=== PATIENT | female | born 1975 | race Caucasian/White ===

== ENCOUNTER 2018-11-09 11:24 | Day surgery (SDC) | payer OTHER ==
[~2018-11-09 11:24] MED LIST: CEFAZOLIN 2 GM/50 ML (PMX) 50 ML IVPB; SOD CHLORIDE 0.9% 1,000 ML IV
[2018-11-09] MEDS ORDERED: BUPIVACAINE 0.5% (SDV) 30 ML INJ (12:13)
[2018-11-09] MEDS ORDERED: PROPOFOL 100 ML (13:00)
[2018-11-09] MEDS ORDERED: LIDOCAINE 2% (SDV) 5 ML INJ (13:01)
[2018-11-09] MEDS ORDERED: CEFAZOLIN 1 GM INJ (13:08)
[2018-11-09] MEDS: LIDOCAINE 1% (MPF) 30 ML INJ (13:20)
[2018-11-09] MEDS ORDERED: DEXAMETHASONE 4 MG/ML 5 ML INJ (13:21)
[2018-11-09] MEDS ORDERED: ONDANSETRON 4 MG INJ (13:22)
[2018-11-09] MEDS ORDERED: DIPHENHYDRAMINE 50 MG INJ IV (14:00)
[2018-11-09] MEDS ORDERED: OXYCODONE/ACETAMINOPHEN (5/325) TAB PO ×2 (14:00)
[2018-11-09] MEDS ORDERED: METOCLOPRAMIDE 10 MG INJ IV (14:00)
[2018-11-09] MEDS ORDERED: FENTAnyl 50 MCG/ML VIAL IV ×3 (14:00)
[2018-11-09] MEDS ORDERED: MEPERIDINE 25 MG INJ IV (14:00)
[2018-11-09] MEDS ORDERED: KETOROLAC 30 MG INJ IV (14:00)
[2018-11-09] MEDS ORDERED: LABETALOL HCL 20MG INJ IV (14:00)
[2018-11-09] MEDS ORDERED: hydrALAzine 20 MG INJ IV (14:00)
[2018-11-09] MEDS ORDERED: ALBUTEROL 0.083% (NEB) 2.5 MG/3 ML AMP HHN (14:00)
[2018-11-09] MEDS ORDERED: ONDANSETRON 4 MG INJ IV (14:00)
[2018-11-09] MEDS ORDERED: HYDROmorphONE 1 MG/5 ML IV SYRINGE IV ×3 (14:00)
[2018-11-09] MEDS ORDERED: EPHEDrine 25 MG/5 ML SYG IV (14:00)
== END 2018-11-09 16:42 | disposition home or self-care (01) ==
LOC: SDS 11:24
DX: D24.1 Benign neoplasm of right breast (principal); E78.5 Hyperlipidemia, unspecified; E66.9 Obesity, unspecified; D64.9 Anemia, unspecified
CPT/HCPCS: 19120; 88307